=== PATIENT | female | born 1965 | race Caucasian/White ===

== ENCOUNTER 2019-12-24 13:02 | Inpatient (IN) | payer SELFPAY ==
[2019-12-24] VITALS (18 sets, daily range): BP systolic 62–150; BP diastolic 44–97
[~2019-12-24] VITALS: Ht 160 cm; Wt 85.8 kg
--- NOTE | 2019-12-24 13:02 | NUR ---
PT ARRIVES VIA EMS STRETCHER TO ROOM #9.
--- NOTE | 2019-12-24 13:07 | NUR ---
PATIENT PLACED IN REVERSE [place] POSITION BP 75/47. EMS IV FLUIDS INFUSING AT THIS TIME. PT HAS RECEIVED APPROX 400 MLS. MD AWARE OF PT STATUS. PT REPORTS BEING ON A DRINKING BINGE APPROX 3 WEEKS PRIOR WITH NO ALCOHOL CONSUMPTION SINCE. PT REPORTS GENERALIZED WEAKNESS AND DIARRHEA SINCE 12/04/19. PT A&0 X 4 BUT HESITANT TO ANSWER QUESTIONS. BILATERAL LS CLEAR. ABD SOFT, NON TENDER WITH ACTIVE BS. PT DENIES ANY DIZZINESS AT THIS TIME.
--- NOTE | 2019-12-24 13:30 | NUR ---
PATIENT REMAINS HYPOTENSIVE AT 64/42. MD NOTIFIED. PT REMAINS IN REVERSE [place]. 2 L OF NS INFUSING. PT DENIES ANY PAIN.
[2019-12-24 13:43] LABS: HEMATOCRIT 34.7 % (37.0-47.0); HEMOGLOBIN 11.5 g/dl (12.0-16.0); IMMATURE GRANULOCYTES 3.6 % (0.0-5.0); MEAN CELL VOLUME 104.2 fL CALC (80.0-100.0); MEAN CORPUSCULAR HGB 34.5 pG CALC (26.0-32.0); MEAN CORPUSCULAR HGB CONC 33.1 g/dL CAL (32.0-36.0); NEUT# 15.52 thou/uL (2.00-7.15); RED BLOOD COUNT 3.33 mill/uL (4.20-5.60); RED CELL DISTRI WIDTH 15.3 % (11.5-15.5)
--- NOTE | 2019-12-24 13:53 | NUR ---
PATIENT REMAINS HYPOTENSIVE AT 75/45, DR LAIRD NOTIFIED. NO NEW ORDERS RECIEVED. PT REMAINS INREVERSE [facility].
[2019-12-24 13:55] LABS: ALBUMIN 3.1 g/dL (3.2-5.0); ALKALINE PHOSPHATASE 230 u/l (38-126); ANION GAP 13 (6-22 (CALC)); BILIRUBIN, TOTAL 1.6 mg/dL (0.0-1.4); CARBON DIOXIDE 21 mmol/l (22-30); CHLORIDE 98 mmol/l (95-108); CREATININE 2.2 mg/dL (0.5-1.0); GFR 23 ML/MIN (>=60 (CALC)); GFR FOR AFR.AMER. 28 ML/MIN (>=60 (CALC)); POTASSIUM 3.8 mmol/l (3.5-5.1); SGOT/AST 67 u/l (14-36); SODIUM 129 mmol/l (137-146); TOTAL PROTEIN 6.7 g/dL (6.3-8.2)
[2019-12-24 13:56] LABS: ACT PARTIAL THROMBO TIME 23.6 SECONDS (20.0-32.5); PROTHROMBIN TIME 9.7 SECONDS (9.0-12.5)
[2019-12-24 14:00] LABS: BUN/CREATININE RATIO 39 (12-20 (CALC))
[2019-12-24 14:08] LABS: BUN 85 mg/dL (7-17)
--- NOTE | 2019-12-24 14:10 | NUR ---
PATIENT REMAINS IN REVERSE [place] POSITION. PT ALERT AND ORIENTED X 4. COVID SWAB COLLECTED A NASAL SWAB THE PATIENT RESFUSED THE NASOPHARENGEAL SWAB.
--- NOTE | 2019-12-24 14:30 | NUR ---
STRAIGHT CART URINE SAMPLE PROVIDED. URINE QUIANA IN COLOR AND CLOUDY. SIGNIFICANT OTHER STATES LAST TIME PATIENT DRANK WAS 2 WEEKS AGO. HE REPORTS HALLUCINATIONS WELL APPROX 2 DAYS PRIOR. PT REMAINS A&O X 3 AT THIS TIME.
[2019-12-24 14:43] LABS: URINE BILIRUBIN - DIPSTICK NEGATIVE (NEGATIVE); URINE BLOOD DIPSTICK SMALL (NEGATIVE); URINE COLOR YELLOW; URINE GLUCOSE - DIPSTICK NEGATIVE (NEGATIVE); URINE KETONE NEGATIVE (NEGATIVE); URINE NITRITE - DIPSTICK NEGATIVE (Negative); URINE PROTEIN - DIPSTICK TRACE mg/dL (NEG-TRACE); URINE SPECIFIC GRAVITY <=1.005; URINE UROBILINOGEN - DIPSTICK 0.2 E.U./dL (0.2)
[2019-12-24 14:44] LABS: URINE LEUK ESTERASE LARGE (NEGATIVE)
--- NOTE | 2019-12-24 15:00 | NUR ---
PATIENT INSTRUCTED TO LAY ON BACK AND NOT ON SIDE. PT AND SIGNIFICANT OTHER UPDATED ON WAIT TIME. CALL SALGADO WITHIN REACH.
[2019-12-24 15:07] LABS: URINE BACTERIA FEW hpf; URINE SQUAMOUS EPITHELIAL CELL FEW EPI/hpf (0-FEW); URINE WBC TNTC WBC/hpf (0-5)
--- NOTE | 2019-12-24 15:30 | NUR ---
IV VANCO INFUSING IV SITE FREE FROM REDNESS/EDEMA. BP 86/54.
--- NOTE | 2019-12-24 16:10 | NUR ---
PT BP PATIENT BP 91/59 AND IS RESTING COMFORTABLY IN STRETCHER.
--- NOTE | 2019-12-24 16:33 | NUR ---
PATIENT REMAINS IN REVERSE [place], BP 85/56.
--- NOTE | 2019-12-24 16:40 | NUR ---
PATIENT AND SIGNIFICANT OTHER UPDATED ON PLAN FOR ADMISSION AND WAIT TIME.
--- NOTE | 2019-12-24 16:55 | NUR ---
MD AT BEDSIDE TO DISCUSS RESULTS AND PLAN FOR ADMISSION.
--- NOTE | 2019-12-24 17:15 | NUR ---
PATIENT REPORT CALLED TO ART MCGRATH.
--- NOTE | 2019-12-24 17:20 | NUR ---
DISCUSSED WITH DR LAIRD ICUS CONCERN FOR CENTRAL LINE. SHE DOES NOT FEEL THAT THE PATIENT NEEDS CENTRAL LINE AT THIS TIME.
--- NOTE | 2019-12-24 17:20 | NUR ---
REPORT RECEIVED FROM SUSY CORDOVA IN THE ER. BP REMAINS AT 85/50. BANNANA BAG INFUSING CURRENTLY AFTER 1L [facility] EMS AND 4L [facility] ER. PT CURRENTLY HAS 2 IV SITES PER ER NURSE. WILL PHONE DR SLADE REFERENCE NECESSITY OF CENTRAL LINE PLACEMENT. DR SLADE GAVE VERBAL ORDER FOR CENTRAL LINE PLACEMENT. AFTER [facility] PLAN IS FOR MAINTENANCE FLUIDS @100C/HR AND NOREPI DRIP IF NEEDED. NOTIFIED ER OF ORDER FOR CENTRAL LINE PLACEMENT. WAS INFORMED THAT DASHA CORDOVA WOULD REPLACE EMS SITE WITH 16 GAUGE RAC. BUT AT THIS TIME NO CENTRAL LINE WOULD BE STARTED PER ER MD.
--- NOTE | 2019-12-24 17:40 | NUR ---
Admission Note Report Given to: ART MCGRATH Transported by: Wheelchair X Stretcher Transported with: X Nurse Transporter X Patent IV O2 X Renewal Specialist Location: X ICU MS2 PT TRANSFERED TO ICU BED 8 IN STABLE CONDITION ON MONITOR.
--- NOTE | 2019-12-24 17:45 | NUR ---
PT TO ICU BED 8 VIA ER STRETCHER ACCOMPANIED BY ER NURSE. PT ABLE TO MOVE OVER TO BED WITH ASSISTANCE. PT IS ALERT AND ORIENTED X3 WITH SOME BRIEF PERIODS OF CONFUSION. PT SCELERA YELLOWED. IV PATNENT X2. ADMISSION ASSESSMENT COMPLETED AT THIS TIME. SR ON MONITOR. ORIENTED PT TO CALL LIGHT SYSTEM. PT VERBALIZED UNDERSTANDING. CALL LIGHT IN REACH. WILL CONTINUE TO MONITOR.
--- NOTE | 2019-12-24 18:00 | NUR ---
CHOE PLACED WITH VERBAL CONSENT BY PATIENT USING STERILE TECHNIQUE WITH IMMEADIATE RETURN OF CLEAR YELLOW URINE. PT TOLERATED WELL.
--- NOTE | 2019-12-24 18:24 | NUR ---
DR SLADE NOTIFIED OF BP MANUAL 60/40 ORDERS RECEIVED FOR LEVOPHED PER PROTOCOL AND CENTRAL LINE PLACEMENT.
--- NOTE | 2019-12-24 18:25 | NUR ---
NOTIFEIED ER OF YG FOR CENTRAL LINE PLACEMENT
[2019-12-24] MEDS ORDERED: COZAAR50 MG PO (18:27)
[2019-12-24] MEDS ORDERED: CYMBALTA30 MG PO (18:29)
[2019-12-24] MEDS ORDERED: LEVOTHYROXIN75 MC1 PO (18:30)
--- NOTE | 2019-12-24 18:40 | NUR ---
DR LAIRD AT BEDSIDE FOR CENTRAL LINE PLACEMENT. LEVOPHED STARTED RAC UNTIL CENTRAL LINE IS FINSIHED. ATIVAN 2MG GIVEN IV PUSH FOR ANXIETY. PT TOLERATED CENTRAL LINE PLACEMENT WELL.
--- NOTE | 2019-12-24 20:00 | NUR ---
using cell phone. denies c/o. sclera slightly jaundiced. cardiac rehabilitation program director shows sinus rhythm ht 78. #20 lac & #18 rac saline locks. rt fem tlc in place ns infusing @ 100cchr, levophed infusing @ 4mcg/kg/min. po fluids encouraged. giang cath in place. urine cloudy yellow. fall & air/contact precautions cont.
--- NOTE | 2019-12-24 21:00 | NUR ---
son (nick) called this group underwriter. updated on pts condition. son then called pt & spoke to her.
[2019-12-25] VITALS (69 sets, daily range): BP systolic 78–151; BP diastolic 38–89
--- NOTE | 2019-12-25 00:01 | NUR ---
eyes closed. no distress. ekg monitor tech shows sinus rhythm hr 90.
--- NOTE | 2019-12-25 02:00 | NUR ---
awake. iv out lac. giang draining well. bed alarm conts.
--- NOTE | 2019-12-25 04:00 | NUR ---
bed alarm sounding. pt attempting to get oob. laid down after instruction. confused. unaware of time. reoriented with success. blood drawn & sent to lab.
--- NOTE | 2019-12-25 05:45 | NUR ---
bed alarm sounding. pt attempting to get oob. requestedwater-given. tv turned on per request.
[2019-12-25 05:56] LABS: BILIRUBIN, TOTAL 1.5 mg/dL (0.0-1.4); CREATININE 1.5 mg/dL (0.5-1.0); MAGNESIUM 1.9 mg/dL (1.6-2.3)
[2019-12-25 06:06] LABS: HEMATOCRIT 31.2 % (37.0-47.0); HEMOGLOBIN 10.2 g/dl (12.0-16.0); IMMATURE GRANULOCYTES 3.4 % (0.0-5.0); MEAN CELL VOLUME 105.1 fL CALC (80.0-100.0); MEAN CORPUSCULAR HGB 34.3 pG CALC (26.0-32.0); MEAN CORPUSCULAR HGB CONC 32.7 g/dL CAL (32.0-36.0); NEUT# 19.16 thou/uL (2.00-7.15); RED BLOOD COUNT 2.97 mill/uL (4.20-5.60)
[2019-12-25 06:17] LABS: ALBUMIN 2.4 g/dL (3.2-5.0); POTASSIUM 4.6 mmol/l (3.5-5.1); TOTAL PROTEIN 5.2 g/dL (6.3-8.2)
--- NOTE | 2019-12-25 06:45 | NUR ---
REPORT RECEIVED FROM CHELSEY KYLE. CARE ASSUMED.
--- NOTE | 2019-12-25 07:20 | NUR ---
PT RESTING IN BED AWAKE. PT IS ALERT AND ORIENTED TO SELF ONLY. REORIENTATION UNSUCCESSFUL. SHIFT ASSESSMENT COMPLETED AT THIS TIME. IV PATENT X2. CALL LIGHT IN REACH. BED ALARM IN PLACE FOR PT SAFETY. WILL CONTINUE TO MONITOR
--- NOTE | 2019-12-25 07:50 | NUR ---
PT SET UP FOR AM MEAL. CALL LIGHT IN REACH. WILL CONTINUE TO MONITOR
--- NOTE | 2019-12-25 08:30 | NUR ---
BP 84/52 O2 SATS 90%. NOTIFIED RT. DISCUSSED WITH RT. DECIDED TO PLACE ON FI SEBAS
--- NOTE | 2019-12-25 08:40 | NUR ---
LEVOPHED TITRATED. PT PLACED ON O2 HI SEBAS NC 3L. O2 SATS IMPROVED TO 98%
--- NOTE | 2019-12-25 09:00 | NUR ---
PT PULLING OFF WIRES AND BP CUFF. PT REMAINS CONFUSED. REORIENATION IS SUCCESSFUL. CALL LIGHT IN REACH. WILL CONTINUE TO MONITOR. BED ALARM IN PLACE FOR PT SAFETY
--- NOTE | 2019-12-25 09:30 | NUR ---
DR SLADE AT BEDSIDE AT THIS TIME TO DISCUSS PLAN OF CARE WITH PATIENT.
--- NOTE | 2019-12-25 09:54 | NUR ---
LAB DRAWN FROM TLC TO RIGHT GROIN AND SPECIMEN SENT TO LAB
--- NOTE | 2019-12-25 10:10 | NUR ---
AT BEDSIDE TO MEDICATE PATIENT. TITRATED LEVOPHED PER TITRATION CHARTING. WILL MONITOR BLOOD PRESSURE AND TITRATE NEEDED.
--- NOTE | 2019-12-25 10:35 | NUR ---
SURAJ SIGNIFICANT OTHER PHONED FOR UPDATE. UPDATE PROVIDED.
--- NOTE | 2019-12-25 11:30 | NUR ---
SET PT UP IN BED FOR NOON MEAL. PT DRANK STRAWBERRY ENSURE.
--- NOTE | 2019-12-25 11:57 | NUR ---
PT NOTED TO HAVE LOWERED HEAD OF BED AND DID NOT EAT WILL ENCOURAGE PT TO EAT.
--- NOTE | 2019-12-25 12:45 | NUR ---
PT WAS ATTEMPTING TO GET OUT OF BED. THIS NURSE INTO ROOM. PT STATES THAT SHE WANTS TO GET UP AND STRETCH. ANTOHER NURSE INTO ROOM TO ASSIST DUE TO PT NOTED TO HAVE WEAKNESS. PT NOTED TO HAVE BOWEL INCONTINENCE. ORTHOSTATICS COMPLETED. LYING BP 97/61. SITTING BP 90/63. STANDING BP 78/56. PT WITH COMPLAINTS OF DIZZINESS AND HAD TO IMMEADIATELY SIT DOWN. PT THEN ASSISTED TO BSC. PT NOTED TO HAVE SMALL LIQUID BM WITH MUCOUS AND BLOOD MIXED IN. BOWEL SPECIMEN OBTAINED AND SENT TO LAB. PT NOTED TO NOT BE ABLE TO SIT STILL ON BSC WHILE LINENS BEING CHANGED. PT RESTLESS SOMEWHAT ANXIOUS. PT ASSISTED BACK TO BED. ATIVAN GIVEN FOR ANXIETY. LEVOPHED INCREASED PER TITRATION CHARTING. CALL LIGHT IN REACH. BED ALARM SET FOR PT SAFETY. WILL CONTINUE TO MONITOR.
--- NOTE | 2019-12-25 14:30 | NUR ---
PT RESTING IN BED WITH EYES CLOSED. RESP ARE EVEN AND UNLABORED. NO DISTRESS NOTED CALL LIGHT IN REACH. WILL CONTINUE TO MONITOR.
--- NOTE | 2019-12-25 15:49 | NUR ---
PT RESTING IN BED WITH EYES CLOSED. RESP ARE EVEN AND UNLABORED. NO DISTRESS NOTED. CALL LIGHT IN REACH. BED ALARM IN PLACE FOR PT SAFETY. WILL CONTINUE TOMONITOR.
--- NOTE | 2019-12-25 18:11 | NUR ---
PT AWAKE IN BED TALKING ON CELL PHONE. CALL LIGHT IN REACH. BED ALARM IN PLACE FOR PT SAFETY. WILL CONTINUE TO MONITOR
--- NOTE | 2019-12-25 19:30 | NUR ---
PT OPENED EYES WHEN THIS RN AT BEDSIDE. PT WITH NC OFF. SA02 97% PT RELATED SHE DID NOT NEED IT AT THIS TIME. INFORMED PT IF SHE FELT SOB, TO PLACE NC BACK ON. PT UNDERSTOOD. NO NEEDS AT THIS TIME. CALL SALGADO IN REACH.
--- NOTE | 2019-12-25 20:00 | NUR ---
PT AWAKE AND ALERT, ORIENTED TO SELF AND PLACE. NO AGITATION AT THIS TIME. PROVIDED REORIENTATION TO AND CALL SALGADO.
--- NOTE | 2019-12-25 22:00 | NUR ---
PT LYING ON L SIDE. NO DISTRESS NOTED. VS PER MONITOR. CALL SALGADO IN REACH.
[2019-12-26] VITALS (22 sets, daily range): BP systolic 98–158; BP diastolic 62–88
--- NOTE | 2019-12-26 | NUR ---
PT LYING R SIDE. OPENS EYES WHEN ENTERING ROOM. NO DISTRESS NOTED. CALL SALGADO IN REACH.
--- NOTE | 2019-12-26 04:00 | NUR ---
PT AWAKE, STARTING TO INCREASE IN ANXIETY. ORIENTED TO SELF ONLY. CALL SALGADO IN REACH.
--- NOTE | 2019-12-26 05:00 | NUR ---
PT REMOVED FROM BEDPAN, LIQUID BROWN STOOL. PERIANAL CARE BY IGNACIO CORDOVA. PT RECEIVED BED BATH.
--- NOTE | 2019-12-26 05:10 | NUR ---
PT DOES NOT WANT TO WEAR OXYGEN. NC OFF. SA02 99%
--- NOTE | 2019-12-26 05:10 | NUR ---
LEVOPHED GTT TO 3MCG
[2019-12-26 05:43] LABS: HEMATOCRIT 29.9 % (37.0-47.0); HEMOGLOBIN 9.6 g/dl (12.0-16.0); MEAN CELL VOLUME 105.7 fL CALC (80.0-100.0); MEAN CORPUSCULAR HGB 33.9 pG CALC (26.0-32.0); MEAN CORPUSCULAR HGB CONC 32.1 g/dL CAL (32.0-36.0); NEUT# 14.33 thou/uL (2.00-7.15); RED BLOOD COUNT 2.83 mill/uL (4.20-5.60)
[2019-12-26 05:50] LABS: CREATININE 1.2 mg/dL (0.5-1.0); MAGNESIUM 1.6 mg/dL (1.6-2.3); POTASSIUM 4.2 mmol/l (3.5-5.1)
--- NOTE | 2019-12-26 06:10 | NUR ---
PT PLACED ON BEDPAN BY IGNACIO CORDOVA.
--- NOTE | 2019-12-26 06:20 | NUR ---
LEVOPHED GTT REDUCED TO 2MCG B/P 151/85
--- NOTE | 2019-12-26 07:30 | NUR ---
PT SLEEPING; EASILY AROUSABLE TO VERBAL STIMULI; PT AO TO SELF; DENIES ANY PAIN OR DISCOMFORT AT THIS TIME; LEVO DRIP HELD AT THIS TIME; PT UPDATED ON POC AND VERBALIZES UNDERSTANDING; MONITORING DEVICES IN PLACE; VSS; WILL CONTINUE TO MONITOR
--- NOTE | 2019-12-26 08:10 | NUR ---
DR SLADE AT BEDSIDE
--- NOTE | 2019-12-26 10:00 | NUR ---
PT SLEEPING IN BED; NO S/S OF DISTRESS NOTED; MONITORING DEVICES IN PLACE; VSS; IVF INFUSING PER ORDERED RATE; CHOE DRAINING PER GRAVITY; SAFETY PRECAUTIONS IN PLACE; CALL LIGHT WITHIN REACH; WILL CONTINUE TO MONITOR
--- NOTE | 2019-12-26 11:58 | NUR ---
PT SITTING UP IN BED FOR LUNCH; PT ALERT AND COOPERATIVE; DENIES ANY PAIN OR DISCOMFORT AT THIS TIME; VSS; CALL LIGHT WITHIN REACH; WILL CONTINUE TO MONITOR
--- NOTE | 2019-12-26 14:05 | NUR ---
PT SLEEPING ON LEFT SIDE; NO S/S OF DISTRESS NOTED; MONITORING DEVICES IN PLACE; VSS; IVF INFUSING PER MAR; CHOE DRAINING PER GRAVITY; WILL CONTINUE TO MONITOR
--- NOTE | 2019-12-26 16:00 | NUR ---
PT SLEEPING; EASILY AROUSED BY VERBAL STIMULI; PT ALERT AND COOPERATIVE; DENIES ANY PAIN OR TREMORS; VSS; IVF/KAYLAH ABX INFUSING; CHOE TO GRAVITY; PO FLUIDS GIVEN; SAFETY PRECAUTIONS IN PLACE; CALL LIGHT WITHIN REACH; WILL CONTINUE TO MONITOR
--- NOTE | 2019-12-26 17:50 | NUR ---
PT SITTING UP IN BED FOR DINNER; DENIES ANY DISCOMFORT OR NEEDS AT THIS TIME; WILL CONTINUE TO MONITOR
--- NOTE | 2019-12-26 19:09 | NUR ---
The patient is sleeping, wakes easily. She did not eat her dinner. will continue to monitor.
--- NOTE | 2019-12-26 21:01 | NUR ---
Bed bath gien, fresh water given. changed linens.
--- NOTE | 2019-12-26 22:15 | NUR ---
The patient was given another blanket.
[2019-12-27] VITALS (10 sets, daily range): BP systolic 106–135; BP diastolic 63–81
--- NOTE | 2019-12-27 05:36 | NUR ---
floey removed. the patient was asking about a shower, she was informed that she could have one once she was moved to the other floor.
[2019-12-27 05:44] LABS: HEMOGLOBIN 8.7 g/dl (12.0-16.0); IMMATURE GRANULOCYTES 1.3 % (0.0-5.0); MEAN CELL VOLUME 107.6 fL CALC (80.0-100.0); MEAN CORPUSCULAR HGB 34.7 pG CALC (26.0-32.0); MEAN CORPUSCULAR HGB CONC 32.2 g/dL CAL (32.0-36.0); NEUT# 9.67 thou/uL (2.00-7.15); RED BLOOD COUNT 2.51 mill/uL (4.20-5.60); RED CELL DISTRI WIDTH 15.2 % (11.5-15.5)
[2019-12-27 05:57] LABS: ALBUMIN 2.1 g/dL (3.2-5.0); ALKALINE PHOSPHATASE 119 u/l (38-126); ANION GAP 7 (6-22 (CALC)); BILIRUBIN, TOTAL 1.2 mg/dL (0.0-1.4); BUN 15 mg/dL (7-17); BUN/CREATININE RATIO 16 (12-20 (CALC)); CARBON DIOXIDE 18 mmol/l (22-30); CHLORIDE 115 mmol/l (95-108); CREATININE 0.9 mg/dL (0.5-1.0); GFR > 60 ML/MIN (>=60 (CALC)); GFR FOR AFR.AMER. > 60 ML/MIN (>=60 (CALC)); POTASSIUM 4.2 mmol/l (3.5-5.1); SGOT/AST 26 u/l (14-36); SODIUM 136 mmol/l (137-146); TOTAL PROTEIN 4.6 g/dL (6.3-8.2)
--- NOTE | 2019-12-27 06:45 | NUR ---
REPORT RECEIVED FROM CLINT CORDOVA. CARE ASSUMED.
--- NOTE | 2019-12-27 07:30 | NUR ---
PT RESTING IN BED WITH EYES CLOSED. AROUSES TO VERBAL STIMULI. PT IS ALERT TO SELF ONLY. REORIENTATION SUCCESSFUL AT THIS TIME. SHIFT ASSESSMENT COMPLETED AT THIS TIME. IV PATENT X2. CALL LIGHT IN REACH. WILL CONTINUE TO MONITOR.
--- NOTE | 2019-12-27 08:26 | NUR ---
DR DALE AT BEDSIDE AT THIS TIME.
--- NOTE | 2019-12-27 08:45 | NUR ---
ASSISTED PT UP TO BSC FOR BM X2. PT UNSTEADY WITH COMPLAINTS OF DIZZNESS. PT HAD LOOSE BM. PT HAD INCONTINENT BM IN BED WELL. PT LINENS CHANGED. PT CLEANSED. AND ASSISTED BACK TO BED. PT TOLERATED WELL. CALL LIGHT IN REACH. WILL CONTINUE TO MONITOR.
--- NOTE | 2019-12-27 09:49 | NUR ---
PT ASSISTED UP TO BSC TO VOID AND LIQUID BM. PT CLEANSED. PT ASSISTED BACK TO BED.
--- NOTE | 2019-12-27 10:26 | NUR ---
SIGNIFICANT OTHER PHONED FOR UPDATE. CODE PROVIDED. UPDATE PROVIDED WELL.
--- NOTE | 2019-12-27 12:30 | NUR ---
PT ASSISTED UP TO BSC TO VOID THEN ASSISTED BACK TO BED. PT SET UP FOR NOON MEAL. CALL LIGHT IN REACH. WILL CONTINUE TO MONITOR.
--- NOTE | 2019-12-27 12:40 | NUR ---
PT note Patient is screened for PT intervention and it is felt no intervention is necessary at this time
--- NOTE | 2019-12-27 14:09 | NUR ---
PT RESTING IN BED AWAKE. RESP ARE EVEN AND UNLABORED. NO DISTRESS NOTED. CALL LIGHT IN REACH. WILL CONTINUE TO MONITOR.
--- NOTE | 2019-12-27 14:29 | NUR ---
PT ASSISTED UP TO BSC. PT NOTIFIED THAT SHE IS NEGATIVE FOR COVID AND CAN HAVE A VISITOR. PT VERBALIZED UNDERSTANDING
--- NOTE | 2019-12-27 15:53 | NUR ---
REPORT CALLED TO DENISE KYLE ON [email or web address]. PT TO GO TO ROOM 278.
--- NOTE | 2019-12-27 15:54 | NUR ---
BED ALARM GOING OFF. PT INCONTINENT OF STOOL. PT CLEANSED. LINENS CHANGED. ASSISTED BACK TO BED. CALL LIGHT IN REACH. BED ALARM ON FOR PT SAFETY. WILL CONTINUE TO MONITOR.
--- NOTE | 2019-12-27 16:30 | NUR ---
PT TO [facility] VIA WHEELCHAIR ACCOMPANIED BY KAIT KYLE. SIGNIFICANT OTHER SURAJ NOTIFIED OF TRANSFER AND THAT HE IS ABLE TO VISIT WELL. ALL BELONGINGS SENT TO [facility] WITH PATIENT.
--- NOTE | 2019-12-27 16:42 | NUR ---
PT ARRIVED VIA WC WITH STAFF.
--- NOTE | 2019-12-27 18:09 | NUR ---
PT HAS BEEN RELAXING IN BED , WANTING TO USE THE BATHROOM. EXPLAINED DUE TO BEING "WOBBLY " NEED TO USE THE BSC. VERBALIZED UNDERSTANDING.
--- NOTE | 2019-12-27 21:04 | NUR ---
PT MEDICATED AND ASSESSMENT COMPLETED AT THIS TIME. IV SITE APPEARS HEALTHY, DRESSING CDI. IVF RUNNING @100NS, IV ANTIBIOTIC THERAPY ADMINISTERED AT THIS TIME. PT ASSISTED TO BSC, VERY WOBBLY AMBULATING. MILD CONFUSION, BUT LOC TO CIRCUMSTANCE/FORGETFUL. BED ALARM IS ON.
--- NOTE | 2019-12-28 02:00 | NUR ---
PT ASSISTED TO BSC AND BACK TO BED. PT IS WEAK AND UNSTEADY, BUT NO VISIBLE TREMORS AT THIS TIME. DENIES AUDITORY OR VISUAL DISTURBANCES, DENIES HEADACHE, BUT REPORTS FEELING MILDLY LIGHT-HEADED.
[2019-12-28 04:10] VITALS: BP 98/54
--- NOTE | 2019-12-28 04:19 | NUR ---
V/S ASSESSED, BSC EMPTIED OF 750CC OF DARK YELLOW URINE, SCANT AMOUNT OF SOFT STOOL. ICEWATER REFRESHED AND GRAPE JUICE PROVIDED. PT DENIES ANY OTHER NEEDS AT THIS TIME. IV SITE TO JACE APPEARS HEALTHY AND PATENT AT THIS TIME.
[2019-12-28 08:35] VITALS: BP 113/71
--- NOTE | 2019-12-28 08:35 | NUR ---
ASSESSMENT IS COMPLETED: IV SITE IS FREE FROM REDNESS OR EDEMA. HR IS REG, PULSES ARE STRONG X4, ABD IS SOFT WITH ACTIVE BS. BREATH SOUNDS ARE CLEAR,BILATERALLY, NO C/O SOB. CONTINUE TO OSBERVE AND MONITOR.
[2019-12-28 09:05] LABS: HEMATOCRIT 27.7 % (37.0-47.0); HEMOGLOBIN 8.9 g/dl (12.0-16.0); IMMATURE GRANULOCYTES 0.9 % (0.0-5.0); MEAN CELL VOLUME 104.1 fL CALC (80.0-100.0); MEAN CORPUSCULAR HGB 33.5 pG CALC (26.0-32.0); MEAN CORPUSCULAR HGB CONC 32.1 g/dL CAL (32.0-36.0); NEUT# 10.84 thou/uL (2.00-7.15); RED BLOOD COUNT 2.66 mill/uL (4.20-5.60); RED CELL DISTRI WIDTH 14.8 % (11.5-15.5)
[2019-12-28 09:33] LABS: ALBUMIN 2.2 g/dL (3.2-5.0); ALKALINE PHOSPHATASE 114 u/l (38-126); ANION GAP 7 (6-22 (CALC)); BUN 9 mg/dL (7-17); BUN/CREATININE RATIO 11 (12-20 (CALC)); CARBON DIOXIDE 20 mmol/l (22-30); CHLORIDE 113 mmol/l (95-108); CREATININE 0.9 mg/dL (0.5-1.0); GFR > 60 ML/MIN (>=60 (CALC)); GFR FOR AFR.AMER. > 60 ML/MIN (>=60 (CALC)); MAGNESIUM 1.3 mg/dL (1.6-2.3); POTASSIUM 3.9 mmol/l (3.5-5.1); SGOT/AST 30 u/l (14-36); SODIUM 135 mmol/l (137-146); TOTAL PROTEIN 4.6 g/dL (6.3-8.2)
--- NOTE | 2019-12-28 12:00 | NUR ---
PT IS RELAXING IN BED WITH NO DISTRESS NOTED. IV SITE IS FREE FROM REDNESS OR EDEMA.
[2019-12-28 15:00] VITALS: BP 123/79
--- NOTE | 2019-12-28 16:00 | NUR ---
PT HAS BEEN RESTING IN BED WITH NO DISTRESS NOTED. IV SITE IS FREE FROM REDNESS OR EDEMA.
[2019-12-28 19:30] VITALS: BP 125/60
--- NOTE | 2019-12-28 19:55 | NUR ---
IVPUMP SOUNDING, IV SITE CLAMPS WERE CLAMPED W/FLUIDS ATTEMPTING TO RUN. I DISCONNECTED FLUIDS, FLUSHED ALL LUMENS/PATENT WITH GOOD BLOOD RETURN. IV FLUIDS RECONNECTED AT O ONLY TO ASSIST IN SITE MAINTENANCE. PT MEDICATED ORDERS PROVIDE. PT DENIES ANY OTHER NEEDS AT THIS TIME.
--- NOTE | 2019-12-28 22:07 | NUR ---
IV ANTIBIOTIC THERAPY ADMINISTERED AT THIS TIME. PT WAS SLEEPING, AWOKE BRIEFLY AN RETURNED TO SLEEP.
--- NOTE | 2019-12-29 02:00 | NUR ---
PT SLEEPING, NO S/O DISTRESS NOTED. CALL LIGHT AT SIDE/
[2019-12-29 03:41] VITALS: BP 106/70
--- NOTE | 2019-12-29 03:57 | NUR ---
BLOOD DRAWN FOR LABS AND IV SITE TRIPLE LUMENS FLUSHED PATENT. PT AWOKE AND QUICKLY RETURNED TO SLEEP.
[2019-12-29 05:55] LABS: HEMOGLOBIN 8.6 g/dl (12.0-16.0); MEAN CORPUSCULAR HGB 34.4 pG CALC (26.0-32.0); MEAN CORPUSCULAR HGB CONC 33.1 g/dL CAL (32.0-36.0); RED BLOOD COUNT 2.5 mill/uL (4.20-5.60); RED CELL DISTRI WIDTH 14.5 % (11.5-15.5)
[2019-12-29 06:13] LABS: BUN 9 mg/dL (7-17); BUN/CREATININE RATIO 11 (12-20 (CALC)); CHLORIDE 106 mmol/l (95-108); CREATININE 0.8 mg/dL (0.5-1.0); GFR > 60 ML/MIN (>=60 (CALC)); GFR FOR AFR.AMER. > 60 ML/MIN (>=60 (CALC)); POTASSIUM 3.6 mmol/l (3.5-5.1); SODIUM 135 mmol/l (137-146)
[2019-12-29 06:39] LABS: ANION GAP 7 (6-22 (CALC)); CARBON DIOXIDE 26 mmol/l (22-30)
[2019-12-29 06:40] LABS: MAGNESIUM 1.9 mg/dL (1.6-2.3)
--- NOTE | 2019-12-29 07:47 | NUR ---
RECIEVED REPORT FROM ART LAMAR. PT SLEEPING IN LOW FOWLERS POSITION UPON ENTERING ROOM. RESPIRATIONS ARE EVEN AND UNLABORED WITH NO SIGNS OF DISTRESS. PT DENIES ANY PAIN OR DISCOMFORTS AT THIS TIME. ALL SAFETY PORECAUTIONS ARE IN PLACE WITH CALL LIGHT IN REACH. WILL CONTINUE TO MONITOR
[2019-12-29 10:08] VITALS: BP 121/83
--- NOTE | 2019-12-29 10:08 | NUR ---
ASSESSMENT AND VITALS COMPLETED AT THIS TIME. BP 121/83, HR 84, O2 100% ON ROOM AIR. RESPIRATIONS ARE EVEN AND UNLABORED WITH NO SIGNS OF DISTRESS. LUNG SOUNDS ARE CLEAR, HEART RHYTHM IS NORMAL. BOWEL SOUNDS ARE ACTIVE IN ALL QUADRANTS WITH NO TENDERNESS, LAST REPORTED BM 12/27/19. RADIAL AND PEDAL PULSES ARE STRONG WITH NORMAL CAPILLARY REFILL. TRIPLE LUMEN IN RIGHT GROIN FLUSHED WITH GOOD BLOOD RETURN, SITE APPEARS HEALTHY AND PATENT.SKIN IS WARM AND DRY WITH NO BREAKDOWN. PT DENIES ANY PAIN OR DISCOMFORTS AT THIS TIME. ALL SAFETY PRECAUTIONS ARE IN PLACE WITH CALL LIGHT IN REACH. WILL CONTINUE TO MONITOR
[2019-12-29] MEDS ORDERED: FERR SULFATE325 MG PO (11:39)
[2019-12-29] MEDS ORDERED: LEVOTHYROXIN75 MC1 PO (11:43)
[2019-12-29] MEDS ORDERED: COZAAR50 MG PO (11:43)
[2019-12-29] MEDS ORDERED: CYMBALTA30 MG PO (11:43)
[2019-12-29] MEDS ORDERED: MACROBID100 MG PO (11:49)
--- NOTE | 2019-12-29 12:15 | NUR ---
PT RESTING IN SEMI FOWLERS POSITION WATCHING TV. RESPIRATIONS ARE EVEN AND UNLABORED WITH NO SIGNS OF DISTRESS. PT DENIES ANY PAIN OR DISCOMFORTS AT THIS TIME. TRIPLE LUMEN RUNNING WITH NS @KVO ORDERED, SITE APPEARS HEALTHY AND PATENT. ALL SAFETY PRECAUTIONS ARE IN PLACE WITH CALL LIGHT IN REACH. WILL CONTINUE TO MONITOR
[2019-12-29] MEDS ORDERED: ERTAPENEM1 G1 IV (13:05)
--- NOTE | 2019-12-29 14:05 | NUR ---
TRIPLE LUMEN REMOVED BY ART PEREZ. PT TOLERATED WELL. ALL SAFETY PRECAUTIONS REMAIN IN PLACE WITH CALL LIGHT IN REACH. WILL CONTINUE TO MONITOR.
--- NOTE | 2019-12-29 14:46 | NUR ---
PT REQUESTOING TO SHOWER AT THIS TIME. AWAITING TO PRINT OUT DISCHARGE INSTRUCTIONS, PRINTER DOWN AT THIS TIME. PT VERBALIZED UNDERSTANDING. ALL SAFETY PRECAUTIONS ARE IN PLACE WITHC ALL LIGHT IN REACH. WILL CONTINUE TO MONITOR
--- NOTE | 2019-12-29 15:23 | NUR ---
Discharge instructions given. Patient verbalizes understanding of same. Discharged in stable condition via Wheelchair to Home with family. All belongings sent with pt. PT EDUCATED ON DISCHARGE INSTRUCTIONS AND MEDICATIONS. PT VERBAZIXED UNDERSTANDING. PT LEFT FLOOR WITH ALL BELONGINGS AND DISCHARGE INSTRUCTIONS VIA WHEELCHAIR ACCOMPAINED BY RAY LOMAS
== END 2019-12-29 15:34 | disposition home or self-care (01) | DRG 871 ==
LOC: ED 13:02 → ED-I 16:23 → ED 16:35 → ED-I 16:36 → ICU 16:36 → MS2 12-27 16:38
PROVIDERS: Nurse Practitioner; Student in an Organized Health Care Education/Training Program; ADMIT Internal Medicine; ATTEND Internal Medicine
PROC: 06HY33Z Insertion of Infusion Device into Lower Vein, Percutaneous Approach (ICD-10-PCS; principal; 2019-12-24)
PROC: 0T9B70Z Drainage of Bladder with Drainage Device, Via Natural or Artificial Opening (ICD-10-PCS; 2019-12-24)
DX: A41.9 Sepsis, unspecified organism (principal); R65.21 Severe sepsis with septic shock; N39.0 Urinary tract infection, site not specified; N17.9 Acute kidney failure, unspecified; E87.1 Hypo-osmolality and hyponatremia; F10.239 Alcohol dependence with withdrawal, unspecified; Z16.12 Extended spectrum beta lactamase (ESBL) resistance; E86.0 Dehydration; I95.9 Hypotension, unspecified; D64.9 Anemia, unspecified; E86.1 Hypovolemia; I10 Essential (primary) hypertension; E07.9 Disorder of thyroid, unspecified; B96.20 Unspecified Escherichia coli [E. coli] as the cause of diseases classified elsewhere; Z20.828 Contact with and (suspected) exposure to other viral communicable diseases
CPT/HCPCS: J2060; J3475; S0164

== ENCOUNTER 2021-06-10 08:48 | Emergency (ER) | payer BC ==
[~2021-06-10] VITALS: Ht 160 cm; Wt 84.0 kg
[~2021-06-10 08:48] MED LIST: COZAAR50 MG PO; CYMBALTA30 MG PO; ERTAPENEM1 G1 IV; FERR SULFATE325 MG PO; LEVOTHYROXIN75 MC1 PO; MACROBID100 MG PO
[2021-06-10 09:41] LABS: URINE BILIRUBIN - DIPSTICK NEGATIVE (NEGATIVE); URINE BLOOD DIPSTICK NEGATIVE (NEGATIVE); URINE COLOR YELLOW; URINE GLUCOSE - DIPSTICK NEGATIVE (NEGATIVE); URINE KETONE NEGATIVE (NEGATIVE); URINE LEUK ESTERASE NEGATIVE (NEGATIVE); URINE PH 6.5 (4.5-8.0); URINE PROTEIN - DIPSTICK NEGATIVE (NEG-TRACE); URINE UROBILINOGEN - DIPSTICK 0.2 E.U./dL (0.2)
[2021-06-10 09:45] LABS: URINE NITRITE - DIPSTICK NEGATIVE (Negative)
[2021-06-10 10:19] LABS: IMMATURE GRANULOCYTES 0.1 % (0.0-5.0); MEAN CORPUSCULAR HGB 33.2 pG CALC (26.0-32.0); MEAN CORPUSCULAR HGB CONC 34.1 g/dL CAL (32.0-36.0); NEUT# 8.2 thou/uL (2.00-7.15); RED BLOOD COUNT 4.04 mill/uL (4.20-5.60)
[2021-06-10 10:20] LABS: HEMATOCRIT 39.3 % (37.0-47.0); HEMOGLOBIN 13.4 g/dl (12.0-16.0); MEAN CELL VOLUME 97.3 fL CALC (80.0-100.0)
[2021-06-10 10:32] LABS: ALKALINE PHOSPHATASE 93 u/l (38-126); AMYLASE 47 u/l (30-110); ANION GAP 13 (6-22 (CALC)); BILIRUBIN, TOTAL 1.2 mg/dL (0.0-1.4); BUN 11 mg/dL (7-17); BUN/CREATININE RATIO 13 (12-20 (CALC)); CARBON DIOXIDE 26 mmol/l (22-30); CHLORIDE 103 mmol/l (95-108); CREATININE 0.8 mg/dL (0.5-1.0); ETHYL ALCOHOL 0 mg/dl (0-30); GFR > 60 ML/MIN (>=60 (CALC)); GFR FOR AFR.AMER. > 60 ML/MIN (>=60 (CALC)); LIPASE 57 u/l (23-300); POTASSIUM 3.5 mmol/l (3.5-5.1); SODIUM 139 mmol/l (137-146)
[2021-06-10 10:33] LABS: ALBUMIN 4.1 g/dL (3.2-5.0); SGOT/AST 56 u/l (14-36); TOTAL PROTEIN 7.1 g/dL (6.3-8.2)
[2021-06-10] MEDS ORDERED: ZOFRAN4 MG/TAB PO (11:58)
[2021-06-10] MEDS ORDERED: PROTONIX40 MG PO (11:58)
[2021-06-10 13:30] VITALS: BP 162/89
== END 2021-06-10 13:30 | disposition home or self-care (01) | DRG 392 ==
LOC: ED 08:48
DX: R11.2 Nausea with vomiting, unspecified (principal); E86.0 Dehydration; R10.30 Lower abdominal pain, unspecified; I10 Essential (primary) hypertension; Z20.822 Contact with and (suspected) exposure to COVID-19
CPT/HCPCS: Q9967; S0164